=== PATIENT | male | born 1985 | race Caucasian/White ===

== ENCOUNTER 2024-02-19 16:20 | Emergency (ER) | payer OTHER, SELFPAY ==
[2024-02-19 16:21] VITALS: BP 153/94
[2024-02-19 16:50] VITALS: BMI 26.7
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
[2024-02-19] MEDS: ADACEL 0.5 ML IM (17:03)
== END 2024-02-19 18:32 | disposition home or self-care (01) ==
LOC: EMR 16:20
PROVIDERS: EMERGENCY PHYSICIAN Student in an Organized Health Care Education/Training Program; FAMILY PHYSICIAN Family Medicine
DX: S09.90XA Unspecified injury of head, initial encounter (principal); S50.319A Abrasion of unspecified elbow, initial encounter; S05.11XA Contusion of eyeball and orbital tissues, right eye, initial encounter; V29.99XA Rider (driver) (passenger) of other motorcycle injured in unspecified traffic accident, initial encounter; Z23 Encounter for immunization
CPT/HCPCS: 99284; 90471; 70450; 70486; 72125; 90715